=== PATIENT | male | born 1950 | race African-American/Black ===

== ENCOUNTER 2016-07-31 11:19 | Emergency (ER) | payer MEDICARE, OTHER ==
[~2016-07-31] VITALS: Ht 165.1 cm; Wt 64.9 kg
[~2016-07-31 11:19] MED LIST: ACETAMINOPHEN-1 EAC1 ORAL; BACTRIM DS TAB1 EAC1 ORAL; DOXYCYCLINE MO100 MG ORAL; HYDROCODON-ACE1 EA15 ORAL; METOPROLOL TART25 MG ORAL
[2016-07-31] MEDS ORDERED: NKM (11:27)
[2016-07-31 11:38] VITALS: BP 96/64
[2016-07-31 12:25] VITALS: BP 158/82
[2016-07-31 12:29] LABS: BASOPHILS % (AUTO) 2.4 % (0.0-2.0); EOSINOPHILS % (AUTO) 9.1 % (0.0-3.0); LYMPHOCYTES % (AUTO) 34.9 % (20.0-45.0); MEAN CORPUSCULAR HGB CONC 32.3 G/DL (32.0-36.0); MEAN CORPUSCULAR VOLUME 93 FL (80-99); MEAN PLATELET VOLUME 9.4 FL (6.5-10.1); MONOCYTES % (AUTO) 11.8 % (1.0-10.0); NEUTROPHILS % (AUTO) 41.8 % (45.0-75.0); PLATELET COUNT 231 K/UL (150-450); RED BLOOD COUNT 4.58 M/UL (4.70-6.10); RED CELL DISTRIBUTION WIDTH 13.1 % (11.6-14.8); WHITE BLOOD COUNT 4.4 K/UL (4.8-10.8)
[2016-07-31 12:32] LABS: INR 1.1 (0.9-1.1); PROTHROMBIN TIME 11.7 SEC (9.30-11.50)
[2016-07-31 12:37] LABS: ALANINE AMINOTRANSFERASE 68 U/L (3-41); ANION GAP 11 (5-15); ASPARTATE AMINO TRANSFERASE 76 U/L (5-40); CALCIUM 9.6 mg/dL (8.6-10.2); CARBON DIOXIDE 29 mEQ/L (20-30); CHLORIDE 101 mEQ/L (98-107); CREATININE 0.8 mg/dL (0.7-1.2); GLOMERULAR FILTRATION RATE > 60 mL/min (>60); HEMOLYSIS 7; LIPASE 34 U/L (< 60); POTASSIUM 3.5 mEQ/L (3.4-4.9); SODIUM 141 mEQ/L (135-145); TOTAL PROTEIN 7.2 g/dL (6.6-8.7)
[2016-07-31 12:50] LABS: APPEARANCE,URINE CLEAR; KETONES,URINE NEGATIVE (NEGATIVE); LEUKOCYTE ESTERASE ,URINE 1+ (NEGATIVE); NITRITE,URINE NEGATIVE (NEGATIVE); PH,URINE 6 (4.5-8.0); PROTEIN,URINE NEGATIVE (NEGATIVE); UROBILINOGEN,URINE 4 MG/DL (0.0-1.0)
[2016-07-31 13:23] LABS: BACTERIA,URINE FEW /HPF; MUCUS,URINE FEW /LPF (NONE/OCC); SQUAMOUS EPITHELIAL CELL,UR OCCASIONAL /LPF (NONE/OCC); WBC,URINE 0-2 /HPF (0 - 0)
[2016-07-31 14:18] VITALS: BP 140/83
--- NOTE | 2016-07-31 14:31 | Diagnostic Imaging Report ---
Indications: Abdominal pain, blood in stool Technique: Continuous helical CT imaging of the abdomen and pelvis was performed with automatic exposure control following administration of oral and intravenous nonionic iodine contrast, on a Siemens sensation [address] scanner. Axial, coronal, and sagittal images were reconstructed at 5 mm slice thickness. CTDI volume(s): 15 mGy Total DLP: 777 mGy-cm Findings: Comparison: 07/01/2015 Oral contrast has passed throughout the gastrointestinal tract to the level of distal but not terminal ileum. Entire tract nondilated. Appendix not identified. Gas and feces throughout unopacified colon to rectum. Multiple diverticula in the descending and sigmoid colon. Mild stranding/haziness adjacent to distal descending colon. Short segment of descending and sigmoid colon, rectum are poorly distended and, as such, mural thickening not excludable. No obvious mass. No associated extraluminal gas or fluid collections. Again noted are septated cyst versus 2 adjacent cysts emanating exophytically from the right kidney, distended urinary bladder, prominent arterial mural calcifications. Flow-limiting stenoses of the bilateral external iliac and common femoral, proximal right superficial femoral arteries suggested. Remainder visualized abdominopelvic anatomy demonstrates no other obvious acute abnormality. Irregular pleural-based linear densities are again noted in both lung bases, decreased. Disc space narrowing with marginal osteophyte formation, vacuum phenomenon, discogenic sclerosis, facet sclerosis and hypertrophy again noted throughout lumbar, lower thoracic spine. L3 and L4 laminectomy defects again noted. IMPRESSION: Colonic findings suggestive of mild diverticulitis of the distal descending colon. No evidence of associated obstruction, perforation, or abscess. No other evidence of acute abdominopelvic disease Additional colonic diverticulosis Multisegmental underdistention of left-sided colon. Pathologic mural thickening in these regions not excludable. Consider colonoscopy for further evaluation. Right renal cortical cyst/cysts Severe arteriosclerosis. Bilateral iliofemoral significant stenoses suggested. If clinically indicated, consider CT angiography for further evaluation. Urinary bladder distention. Rule out outlet obstruction. Pulmonary bibasal subsegmental atelectasis versus scarring, decreased in prominence from previous exam Degenerative spondylosis with previous lumbar laminectomies
[2016-07-31] MEDS ORDERED: metroNIDAZOLE 500mg 100 ML IVPB ONE (14:45)
--- NOTE | 2016-07-31 14:53 | Emergency Room Report ---
History of Present Illness General Chief Complaint: Gastrointestinal Bleed Source: Patient Present Illness HPI The patient states that last night and today he developed rectal bleeding. He states that the bleeding was spontaneous and watery in the. He denies constipation or diarrhea. He denies abdominal pain. He denies fever or chills. He denies nausea or vomiting. He has never had this previously. He has no other complaints. Allergies: Coded Allergies: No Known Allergies (Unverified , 05/08/13) Patient History Past Medical History: see triage record, HTN, UT, CAD, other - HCV Social History: Reports: alcohol use, Denies: drug use, smoking Reviewed Nursing Documentation: PMH: Agreed, PSxH: Agreed Nursing Documentation-PMH Past Medical History: No History, Except For Hx Cardiac Problems: Yes - Hepatitis C, mi Hx Hypertension: Yes Review of Systems All Other Systems: negative except mentioned in HPI Physical Exam Vital Signs Date Time Temp Pulse Resp B/P Pulse Ox O2 Delivery O2 Flow Rate FiO2 07/31/16 11:22 98.1 71 18 96/64 98 Room Air Sp02 EP Interpretation: reviewed, normal General Appearance: no apparent distress, alert, GCS 15, non-toxic Head: normocephalic, atraumatic Eyes: bilateral eye PERRL, bilateral eye normal inspection ENT: hearing grossly normal, normal pharynx, no angioedema, normal voice Neck: full range of motion, supple/symm/no masses Respiratory: chest non-tender, lungs clear, normal breath sounds, speaking full sentences Cardiovascular #1: regular rate, rhythm, no edema Gastrointestinal: normal bowel sounds, non tender, soft, non-distended, no guarding, no rebound Rectal: deferred Musculoskeletal: back normal, gait/station normal, normal range of motion, non- tender, calf tenderness Neurologic: alert, oriented x3, responsive, motor strength/tone normal, sensory intact, speech normal Psychiatric: judgement/insight normal, memory normal, mood/affect normal, no suicidal/homicidal ideation Skin: normal color, no rash, warm/dry, well hydrated Medical Decision Making Diagnostic Impression: Primary Impression: Diverticulitis large intestine w/o perforation or abscess w/bleeding ER Course This patient was found to have diverticulitis. CT also showed a distended urinary bladder. However, the patient urinated here throughout his ED course about 800 ml. The patient declined difficulty urinating or feeling of fullness in his bladder. I am unsure if the patient does have a full bladder prior to the CT scan. Regardless, I had planned on admitting this patient, however the patient declined. The patient states that he is at 85-year-old mother that he is the primary caregiver for he cannot be admitted to the hospital. I did educate him that he would need to return for any worsening symptoms and that his condition could deteriorate. He indicated understanding. Labs Test 07/31/16 12:05 07/31/16 12:20 White Blood Count 4.4 K/UL (4.8-10.8) Red Blood Count 4.58 M/UL (4.70-6.10) Hemoglobin 13.7 G/DL (14.2-18.0) Hematocrit 42.6 % (42.0-52.0) Mean Corpuscular Volume 93 FL (80-99) Mean Corpuscular Hemoglobin 30.0 PG (27.0-31.0) Mean Corpuscular Hemoglobin Concent 32.3 G/DL (32.0-36.0) Red Cell Distribution Width 13.1 % (11.6-14.8) Platelet Count 231 K/UL (150-450) Mean Platelet Volume 9.4 FL (6.5-10.1) Neutrophils (%) (Auto) 41.8 % (45.0-75.0) Lymphocytes (%) (Auto) 34.9 % (20.0-45.0) Monocytes (%) (Auto) 11.8 % (1.0-10.0) Eosinophils (%) (Auto) 9.1 % (0.0-3.0) Basophils (%) (Auto) 2.4 % (0.0-2.0) Prothrombin Time 11.7 SEC (9.30-11.50) Prothromb Time International Ratio 1.1 (0.9-1.1) Activated Partial Thromboplast Time 30 SEC (23-33) Sodium Level 141 mEQ/L (135-145) Potassium Level 3.5 mEQ/L (3.4-4.9) Chloride Level 101 mEQ/L (98-107) Carbon Dioxide Level 29 mEQ/L (20-30) Anion Gap 11 (5-15) Blood Urea Nitrogen 11 mg/dL (7-23) Creatinine 0.8 mg/dL (0.7-1.2) Estimat Glomerular Filtration Rate > 60 mL/min (>60) Glucose Level 124 mg/dL (74-106) Calcium Level 9.6 mg/dL (8.6-10.2) Total Bilirubin 0.5 mg/dL (0.0-1.2) Aspartate Amino Transf (AST/SGOT) 76 U/L (5-40) Alanine Aminotransferase (ALT/SGPT) 68 U/L (3-41) Alkaline Phosphatase 89 U/L (40-129) Total Protein 7.2 g/dL (6.6-8.7) Albumin 3.6 g/dL (3.5-5.2) Globulin 3.6 g/dL Albumin/Globulin Ratio 1.0 (1.0-2.7) Lipase 34 U/L (< 60) Urine Color Yellow Urine Appearance Clear Urine pH 6 (4.5-8.0) Urine Specific [place] 1.025 (1.005-1.035) Urine Protein Negative (NEGATIVE) Urine Glucose (UA) Negative (NEGATIVE) Urine Ketones Negative (NEGATIVE) Urine Occult Blood 2+ (NEGATIVE) Urine Nitrite Negative (NEGATIVE) Urine Bilirubin Negative (NEGATIVE) Urine Urobilinogen 4 MG/DL (0.0-1.0) Urine Leukocyte Esterase 1+ (NEGATIVE) Urine RBC 2-4 /HPF (0 - 0) Urine WBC 0-2 /HPF (0 - 0) Urine Squamous Epithelial Cells Occasional /LPF Urine Bacteria Few /HPF (NONE) Urine Mucus Few /LPF (NONE/OCC) CT/MRI/US Diagnostic Results CT/MRI/US Diagnostic Results : Imaging Test Ordered: CT abd/pelvis Impression Colonic findings suggestive of mild diverticulitis of the distal descending colon. No evidence of associated obstruction, perforation, or abscess. No other evidence of acute abdominopelvic disease Additional colonic diverticulosis Multisegmental underdistention of left-sided colon. Pathologic mural thickening in these regions not excludable. Consider colonoscopy for further evaluation. Right renal cortical cyst/cysts Severe arteriosclerosis. Bilateral iliofemoral significant stenoses suggested. If clinically indicated, consider CT angiography for further evaluation. Urinary bladder distention. Rule out outlet obstruction. Pulmonary bibasal subsegmental atelectasis versus scarring, decreased in prominence from previous exam Degenerative spondylosis with previous lumbar laminectomies Last Vital Signs Date Time Temp Pulse Resp B/P Pulse Ox O2 Delivery O2 Flow Rate FiO2 07/31/16 14:18 98.1 71 16 140/83 100 Room Air Status: improved Disposition: AGAINST MEDICAL ADVICE Condition: Serious Referrals: [facility],REFERRING (PCP) GAMAL MORE D.O. July 31, 2016 14:53
[2016-07-31] MEDS ORDERED: CIPROFLOXACIN500 M2 ORAL (14:54)
[2016-07-31] MEDS ORDERED: METRONIDAZOLE500 MG ORAL (14:54)
[2016-07-31] MEDS ORDERED: Ciprofloxacin 500mg tab ORAL ONE (15:00)
[2016-07-31] MEDS ORDERED: metroNIDAZOLE 500mg tab ORAL ONE (15:00)
[2016-07-31 15:46] VITALS: BP 136/70
[2016-07-31 15:49] VITALS: BP 136/70
== END 2016-07-31 15:50 | disposition left against medical advice (07) ==
LOC: EMR 11:45
DX: K57.92 Diverticulitis of intestine, part unspecified, without perforation or abscess without bleeding (principal); I10 Essential (primary) hypertension; I25.10 Atherosclerotic heart disease of native coronary artery without angina pectoris; I25.2 Old myocardial infarction; Z86.19 Personal history of other infectious and parasitic diseases; N28.1 Cyst of kidney, acquired; I70.90 Unspecified atherosclerosis; M47.9 Spondylosis, unspecified
CPT/HCPCS: 36415; 74177; 80053; 81003; 83690; 85025; 85610; 85730; 96374; 99284; Q9967

== ENCOUNTER 2018-02-24 13:36 | Emergency (ER) | payer MEDICARE ==
[~2018-02-24] VITALS: Ht 165.1 cm; Wt 64.9 kg
[~2018-02-24 13:36] MED LIST changes: +CIPROFLOXACIN500 M2 ORAL; +METRONIDAZOLE500 MG ORAL; +NKM
--- NOTE | 2018-02-24 13:54 | Emergency Room Report ---
History of Present Illness General Chief Complaint: Upper Respiratory Illness Source: Patient Present Illness HPI Patient is a 67-year-old male presented after increased cough and difficulty breathing. Patient reports having increased cough productive of clear sputum. He reports having prior heart attack. He reports having increased congestion. He denies any medications he is taking. He denies prior history of CHF. Patient states he's been having shortness of breath for several months.He denies taking inhalers or being a smoker. Allergies: Coded Allergies: No Known Allergies (Unverified , 02/24/18) Patient History Past Medical History: see triage record Reviewed Nursing Documentation: PMH: Agreed; PSxH: Agreed Nursing Documentation-PMH Past Medical History: No History, Except For Hx Cardiac Problems: Yes - Hepatitis C, mi Hx Hypertension: Yes Review of Systems All Other Systems: negative except mentioned in HPI Physical Exam Vital Signs Date Time Temp Pulse Resp B/P (MAP) Pulse Ox O2 Delivery O2 Flow Rate FiO2 02/24/18 13:40 97.7 70 22 115/70 95 Room Air Sp02 EP Interpretation: reviewed, normal General Appearance: normal inspection, well appearing, no apparent distress, alert, GCS 15 Head: atraumatic ENT: normal ENT inspection, hearing grossly normal, normal voice Neck: normal inspection, full range of motion, supple, no bony tend Respiratory: normal inspection, no respiratory distress, no retraction, wheezing Cardiovascular #1: regular rate, rhythm, no edema Gastrointestinal: normal inspection, normal bowel sounds, non tender, soft, no guarding, no hernia Genitourinary: no CVA tenderness Musculoskeletal: normal inspection, back normal, normal range of motion Neurologic: normal inspection, alert, oriented x3, responsive, 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 Differential included but was not limited to anemia, pneumonia, pneumothorax, myocardial infarction, pericardial effusion, congestive heart failure, acidosis. Because of complexity of patient's case imaging studies were ordered. Chest x-ray one view interpreted by me showed the normal cardiac size without any evident infiltrate. Patient was given breathing treatment with improvement of symptoms. He is advised to follow-up with primary care physician for reevaluation and further management of the chronic lung disease. Patient does not appear to be in any respiratory distress and does not appear to have any significant EKG changes require hospitalization. Last Vital Signs Date Time Temp Pulse Resp B/P (MAP) Pulse Ox O2 Delivery O2 Flow Rate FiO2 02/24/18 13:40 97.7 70 22 115/70 95 Room Air Status: improved Disposition: HOME, SELF-CARE Condition: Stable Scripts Prednisone* (PREDNISONE*) 20 Mg Tablet 40 MG ORAL DAILY, #10 TAB Prov: Marcelino Seay MD 02/24/18 Albuterol Sulfate* (ALBUTEROL SULFATE MDI*) 8.5 Gm Hfa.aer.ad 2 PUFF INH Q6H, #1 INH 0 Refills Prov: Marcelino Seay MD 02/24/18 Marcelino Seay MD Feb 24, 2018 13:54
[2018-02-24 13:59] VITALS: BP 139/65
[2018-02-24] MEDS ORDERED: Albuterol/Ipratropium 3ml neb HHN ONE (14:00)
[2018-02-24] MEDS ORDERED: ALBUTEROL SULF8.5 GM INH (14:20)
[2018-02-24] MEDS ORDERED: PREDNISONE20 MG ORAL (14:20)
[2018-02-24 14:32] VITALS: BP 132/69
--- NOTE | 2018-02-25 09:18 | Diagnostic Imaging Report ---
Indication: Shortness of breath Technique: One view of the chest Comparison: none Findings: The heart is upper limits normal in size. Some atelectatic changes are seen at both lung bases. The lungs and pleural spaces otherwise clear. Impression: No acute process
== END 2018-02-24 15:17 | disposition home or self-care (01) ==
LOC: EMR 13:58
DX: J40 Bronchitis, not specified as acute or chronic (principal); I25.2 Old myocardial infarction; B19.20 Unspecified viral hepatitis C without hepatic coma
CPT/HCPCS: 71045; 93005; 94640; 99284; J7620

== ENCOUNTER 2018-05-08 08:33 | Emergency (ER) | payer MEDICARE ==
[~2018-05-08] VITALS: Ht 165.1 cm; Wt 65.8 kg
[~2018-05-08 08:33] MED LIST changes: +ALBUTEROL SULF8.5 GM INH; +PREDNISONE20 MG ORAL
[2018-05-08 08:35] VITALS: BP 127/73
--- NOTE | 2018-05-08 08:43 | NUR ---
eED Nurse Note: Pt came in due to generalized rashes x 2 weeks. Pt states it very itchy and there's some oozing on the back of his knees. Denies SOB. VSS.
--- NOTE | 2018-05-08 09:11 | Emergency Room Report ---
History of Present Illness General Chief Complaint: Skin Rash/Abscess Source: Patient Present Illness HPI Patient is a 67-year-old male presented after increased generalized skin rash. Patient reports having increased itchy rash primarily to his extremities. Patient reports having prior history of bronchitis. He denies any fever. Patient was noted to have some areas which had increased discomfort to the back of his legs. He denies any fever. He is not currently taking any antibiotics. Patient had previously been diagnosed with psoriasis. Allergies: Coded Allergies: No Known Allergies (Unverified , 02/24/18) Patient History Past Medical History: see triage record Reviewed Nursing Documentation: PMH: Agreed; PSxH: Agreed Nursing Documentation-PMH Past Medical History: No History, Except For Hx Hypertension: Yes Review of Systems All Other Systems: negative except mentioned in HPI Physical Exam Vital Signs Date Time Temp Pulse Resp B/P (MAP) Pulse Ox O2 Delivery O2 Flow Rate FiO2 05/08/18 08:35 97.7 70 14 127/73 95 Room Air General Appearance: well appearing, no apparent distress, alert, GCS 15 Head: normocephalic, atraumatic ENT: hearing grossly normal, normal voice Neck: full range of motion, supple Respiratory: no respiratory distress, speaking full sentences Gastrointestinal: normal inspection Musculoskeletal: no calf tenderness Neurologic: normal inspection, alert, oriented x3, responsive, 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 Patient presented for skin rash. Differential diagnosis include was not limited to eczema, psoriasis, secondary syphilis, erythema multiforme, pityriasis rosea among others. Patient has a benign exam and does not appear to require any further imaging or laboratory testing at this time patient was noted to have large area of affected skin. There is no evident blistering. Patient was given prescription for oral steroids. He was advised to recheck with his primary care physician. Patient was advised to avoid foods that he may be allergic to.Patient was advised to follow-up with primary care physician. He was given medications for symptomatic treatment. Last Vital Signs Date Time Temp Pulse Resp B/P (MAP) Pulse Ox O2 Delivery O2 Flow Rate FiO2 05/08/18 08:35 97.7 14 127/73 95 Room Air 05/08/18 08:35 70 Status: improved Disposition: HOME, SELF-CARE Condition: Stable Scripts Triamcinolone Acet (Triamcinolone Acetonide) 15 Gm Cream..g. 15 GM APPLIC DAILY, #15 GM Prov: Marcelino Seay MD 05/08/18 Hydroxyzine HCl (Hydroxyzine HCl) 10 Mg Tablet 10 MG ORAL EVERY 6 HOURS, #20 TAB 0 Refills Prov: Marcelino Seay MD 05/08/18 Prednisone* (PREDNISONE*) 20 Mg Tablet 40 MG ORAL DAILY, #10 TAB Prov: Marcelino Seay MD 05/08/18 Marcelino Seay MD May 08, 2018 09:11
[2018-05-08] MEDS ORDERED: PREDNISONE20 MG ORAL (09:12)
[2018-05-08] MEDS ORDERED: VISTARIL10 MG ORAL (09:12)
[2018-05-08] MEDS ORDERED: KENALOG 0.025%15 GM APPLIC (09:12)
[2018-05-08 09:17] VITALS: BP 127/80
--- NOTE | 2018-05-08 09:17 | NUR ---
ED Nurse Note: Pt cleared by Health Care Provider for discharge. DC instructions/prescriptions given and explained to pt and verbalized understanding of teachings. All medical devices such as ID band removed. Pt AAO x4, ambulatory and left with all personal belongings.
== END 2018-05-08 09:17 | disposition home or self-care (01) ==
LOC: EMR 09:00
DX: L30.9 Dermatitis, unspecified (principal); I10 Essential (primary) hypertension
CPT/HCPCS: 99282

== ENCOUNTER 2018-05-28 17:19 | Emergency (ER) | payer MEDICARE ==
[~2018-05-28] VITALS: Ht 160 cm; Wt 61.2 kg
[~2018-05-28 17:19] MED LIST changes: +KENALOG 0.025%15 GM APPLIC; +VISTARIL10 MG ORAL
[2018-05-28 17:28] VITALS: BP 128/76
--- NOTE | 2018-05-28 17:28 | NUR ---
ED Nurse Note: PT WALKED IN TO ER TODAY FROM HOME. AOX4. PT C/O ITCHY GENERALIZED RASH ALL OVER BODY X 2 WEEKS AGO. PT STATES HE WAS SEEN 2 WEEKS AGO WHEN RASH INITIALLY STARTED AND WAS D/C'D WITH RX BUT LOST THE RX. MEDS NEVER FILLED.
[2018-05-28] MEDS ORDERED: VISTARIL10 MG ORAL (17:45)
[2018-05-28] MEDS ORDERED: PREDNISONE20 MG ORAL (17:45)
[2018-05-28] MEDS ORDERED: HydrOXYzine tab 25mg tab ORAL ONE (17:45)
[2018-05-28] MEDS ORDERED: KENALOG 0.025%15 GM APPLIC (17:45)
--- NOTE | 2018-05-28 17:46 | Emergency Room Report ---
History of Present Illness General Chief Complaint: Skin Rash/Abscess Source: Patient Present Illness HPI 67-year-old patient ER complaining of generalized rash over entire body that has been present for several weeks. Phani previously seen here 2 weeks ago and was discharged home with medications, states that he lost the prescriptions on the way home. Reports has not taken any other medications since that time. Reports is been using topical lotions without relief of symptoms. Reports pruritus. Denies pain. Denies fever, chest pain, shortness of breath. Denies history of allergies. Denies new lotions or creams. Denies past medical history. Denies other aggravating or relieving factors. Patient is requesting refill of medications. Denies history of diabetes. Denies history of heart disease. Allergies: Coded Allergies: No Known Allergies (Unverified , 02/24/18) Patient History Past Medical History: see triage record Reviewed Nursing Documentation: PMH: Agreed; PSxH: Agreed Nursing Documentation-PMH Past Medical History: No History, Except For Hx Hypertension: Yes Review of Systems All Other Systems: negative except mentioned in HPI Physical Exam Vital Signs Date Time Temp Pulse Resp B/P (MAP) Pulse Ox O2 Delivery O2 Flow Rate FiO2 05/28/18 17:22 97.3 67 18 131/78 98 Room Air Sp02 EP Interpretation: reviewed, normal General Appearance: well appearing, no apparent distress, alert, GCS 15, non- toxic Head: normocephalic, atraumatic Eyes: bilateral eye normal inspection, bilateral eye PERRL ENT: hearing grossly normal, normal pharynx, no angioedema, normal voice, uvula midline, moist mucus membranes Neck: full range of motion Respiratory: lungs clear, normal breath sounds, no rhonchi, no respiratory distress, no accessory muscle use, no wheezing, speaking full sentences Cardiovascular #1: regular rate, rhythm, no edema Musculoskeletal: back normal, digits/nails normal, gait/station normal, normal range of motion, non-tender Neurologic: alert, oriented x3, responsive, motor strength/tone normal, sensory intact Skin: rash - Generalized rash of her body and arms, worse on flexor surfaces, with excoriations, no surrounding erythema or edema, no drainage Medical Decision Making PA Attestation Dr. Seay is my supervising Physician whom patient management has been discussed with. Diagnostic Impression: Primary Impression: Rash and other nonspecific skin eruption ER Course Pt. presents to the ED c/o rash. Ddx considered but are not limited to atopic dermatitis, scabies, shingles, allergic reaction, impetigo, psoriasis, lichen simplex chronicus. Vital signs: are WNL, pt. is afebrile Ordered medication. ER COURSE Provided patient with hydroxyzine in the ER for itching. Provided with contact information for free low-cost healthcare clinics, advised to follow-up and get referral to dermatology. Does not require oral antibiotics, no erythema or edema, excoriations noted, will provide topical antibiotics and steroid to help with itching symptoms and prevent infection. Followup with dermatology. ER precautions given. DISCHARGE: At this time pt. is stable for d/c to home. Patient resting comfortably, in no acute distress, nontoxic appearing. Will provide printed patient care instructions, and any necessary prescriptions. Care plan and follow up instructions have been discussed with the patient prior to discharge. Patient provided with list of healthcare clinics to establish primary care physician. Patient instructed to follow-up with primary care provider in 3 - 5 days. Patient questions asked and answered. ER precautions given. Patient instructed to return to ER immediately for any new or worsening of symptoms including but not limited to increasing SOB, persistent fever. - Please note that this Emergency Department Report was dictated using [employer] sql database developer technology software, occasionally this can lead to erroneous entry secondary to interpretation by the dictation equipment. Last Vital Signs Date Time Temp Pulse Resp B/P (MAP) Pulse Ox O2 Delivery O2 Flow Rate FiO2 05/28/18 17:28 97.6 70 16 128/76 99 Room Air Disposition: HOME, SELF-CARE Condition: Stable Scripts Bacitracin/Polymyxin B Sulfate (BACITRACIN-POLYMYXIN OINTMENT) 28.35 Gm Oint...g. 1 APPLIC TP BID, #28 GM Prov: Aric Orozco 05/28/18 Triamcinolone Acet (Triamcinolone Acetonide) 15 Gm Cream..g. 15 GM APPLIC DAILY, #15 GM Prov: Aric Orozco 05/28/18 Hydroxyzine HCl (Hydroxyzine HCl) 10 Mg Tablet 10 MG ORAL EVERY 6 HOURS, #20 TAB 0 Refills Prov: Aric Orozco 05/28/18 Prednisone* (PREDNISONE*) 20 Mg Tablet 40 MG ORAL DAILY, #10 TAB Prov: Aric Orozco 05/28/18 Patient Instructions: Psoriasis, [id number], Rash Additional Instructions: Followup with primary care provider in 3 -5 days. Request referral to dermatology as needed. Do not scratch or itch. Apply cool compresses to affected area. Wash all clothes and bedding. Take medications as directed. Do not apply topical steroid medication to face or skin creases. SE Benadryl drowsiness, do not take prior to drinking, driving, operating heavy machinery. Take Claritin during the day and Benadryl at night for itching symptoms. Patient questions asked and answered. ER precautions given, patient instructed to return to ER immediately for any new or worsening of symptoms. [facility] Dr. Anmol Ocasio Aric Orozco May 28, 2018 17:46
[2018-05-28 17:49] VITALS: BP 124/80
--- NOTE | 2018-05-28 17:50 | NUR ---
ED Nurse Note: PT LAYING PEACEFULLY IN BED IN NAD. AOX4. PRESCRIPTIONS AND DISCHARGE PAPERWORK EXPLAINED TO PT. PT VERBALIZES UNDERSTANDING AND ALL QUESTIONS ANSWERED. PRESCRIPTIONS AND DISCHARGE PAPERWORK GIVEN TO PT AND ID WRISTBAND REMOVED. PT WALKED OUT OF ER WITH STEADY GAIT AND ALL BELONGINGS.
[2018-05-28] MEDS ORDERED: BACITRACIN-P28.35 GM TP (17:51)
== END 2018-05-28 17:50 | disposition home or self-care (01) ==
LOC: EMR 17:40
DX: R21 Rash and other nonspecific skin eruption (principal); I10 Essential (primary) hypertension
CPT/HCPCS: 99282

== ENCOUNTER 2019-03-17 00:40 | Emergency (ER) | payer BC, MEDICARE ==
[~2019-03-17] VITALS: Ht 180.3 cm; Wt 68.0 kg
[~2019-03-17 00:40] MED LIST changes: +BACITRACIN-P28.35 GM TP
--- NOTE | 2019-03-17 00:45 | NUR ---
ED Nurse Note: Pt brought in by ambulance from [facility], pt reports "feel like I'm going to " is unaqble to specify what is wrong, denies pain. Pt is A&Ox3, VSS. Pt admits to using crack
--- NOTE | 2019-03-17 00:49 | Emergency Room Report ---
History of Present Illness General Chief Complaint: Generalized Weakness Source: Patient, EMS Present Illness HPI This is a 68-year-old male with a history of alcohol drug abuse. He presents with chief complaint of generalized weakness. He is also homeless. He said he is in the rain and it is cold. He has felt weak and soaking wet. He went into a [employer] and asked him to call 911. Denies any fever chills but denies any nausea vomiting. Has generalized weakness. Denies any other complaint. Last crack use was few days ago. Nothing made it better. Nothing made it worse. Allergies: Coded Allergies: No Known Allergies (Unverified , 03/17/19) Patient History Past Medical History: see triage record, old chart reviewed Past Surgical History: other Pertinent Family History: none Social History: Reports: smoking, alcohol use, drug use Immunizations: other Reviewed Nursing Documentation: PMH: Agreed; PSxH: Agreed Review of Systems Constitutional: Reports: weakness Eye: Denies: eye pain, blurred vision ENT: Denies: ear pain, nose congestion, throat swelling Respiratory: Denies: cough, shortness of breath Cardiovascular: Denies: chest pain, palpitations Gastrointestinal: Denies: abdominal pain, diarrhea, nausea, vomiting Musculoskeletal: Denies: back pain, joint pain Skin: Denies: rash Neurological: Denies: headache, numbness Endocrine: Denies: increased thirst, increased urine Hematologic/Lymphatic: Denies: easy bruising All Other Systems: negative except mentioned in HPI Physical Exam [id number] EP Interpretation: reviewed, normal General Appearance: well appearing, no apparent distress, alert Head: normocephalic, atraumatic Eyes: bilateral eye PERRL, bilateral eye EOMI ENT: hearing grossly normal, normal pharynx Neck: full range of motion, supple, no meningismus Respiratory: chest non-tender, lungs clear, normal breath sounds Cardiovascular #1: regular rate, rhythm, no murmur Gastrointestinal: normal bowel sounds, non tender, no mass, no organomegaly, no bruit, non-distended Musculoskeletal: back normal, normal range of motion, other - Uses a walker Psychiatric: mood/affect normal Medical Decision Making Diagnostic Impression: Primary Impression: Episode of generalized weakness Additional Impressions: Anemia Qualified Codes: D64.9 - Anemia, unspecified Cocaine abuse Alcohol abuse ER Course Patient with generalized weakness. I suspect he is more to place to sleep. Labs unremarkable. He admits to alcohol and drug abuse. No evidence of ACS, PE , dissection. Will discharge home in the morning. Status: improved Disposition: HOME, SELF-CARE Condition: Stable Scripts No Active Prescriptions or Reported Meds Patient Instructions: Weakness Additional Instructions: Abstain from drugs and alcohol. Go to rehab. Follow-up with your doctor in 7 days. Return if worse. Ignacio Degroot MD Mar 17, 2019 00:49
[2019-03-17 00:59] VITALS: BP 125/77
[2019-03-17 01:24] LABS: BASOPHILS % (AUTO) 1.6 % (0.0-2.0); EOSINOPHILS % (AUTO) 8.1 % (0.0-3.0); HEMATOCRIT 30.3 % (42.0-52.0); HEMOGLOBIN 9.2 G/DL (14.2-18.0); LYMPHOCYTES % (AUTO) 26.4 % (20.0-45.0); MEAN CORPUSCULAR VOLUME 73 FL (80-99); MONOCYTES % (AUTO) 16.8 % (1.0-10.0); NEUTROPHILS % (AUTO) 47.1 % (45.0-75.0); PLATELET COUNT 326 K/UL (150-450); RED BLOOD COUNT 4.16 M/UL (4.70-6.10); RED CELL DISTRIBUTION WIDTH 15.9 % (11.6-14.8); WHITE BLOOD COUNT 6.9 K/UL (4.8-10.8)
[2019-03-17 01:35] LABS: ANION GAP 7 mmol/L (5-15); BLOOD UREA NITROGEN 12 mg/dL (7-18); CALCIUM 8.5 MG/DL (8.5-10.1); CARBON DIOXIDE 26 MMOL/L (21-32); CHLORIDE 105 MMOL/L (98-107); CREATININE 0.9 MG/DL (0.55-1.30); POTASSIUM 3.7 MMOL/L (3.5-5.1); SODIUM 138 MMOL/L (136-145)
[2019-03-17 01:39] LABS: ALANINE AMINOTRANSFERASE 60 U/L (12-78); ALBUMIN 3.2 G/DL (3.4-5.0); ALBUMIN/GLOBULIN RATIO 0.6 (1.0-2.7); ALKALINE PHOSPHATASE 83 U/L (46-116); ASPARTATE AMINO TRANSFERASE 50 U/L (15-37); BILIRUBIN,TOTAL 0.2 MG/DL (0.2-1.0)
--- NOTE | 2019-03-17 02:45 | NUR ---
ED Nurse Note: Pt resting in bed with eyes closed, non-labored breathing, no signs of distress. Pt was given a sandwhich and juice earlier as well as an urinal. Will continue to monitor
--- NOTE | 2019-03-17 04:45 | NUR ---
ED Nurse Note: Pt resting in bed with eyes closed, side laying, no signs of distress, will continue to monitor
[2019-03-17 06:40] VITALS: BP 138/78
== END 2019-03-17 06:40 | disposition home or self-care (01) ==
LOC: EDBD 00:40 → EDUNIT# 01:05 → EMR 01:05
DX: R53.1 Weakness (principal); D64.9 Anemia, unspecified; F14.10 Cocaine abuse, uncomplicated; F10.10 Alcohol abuse, uncomplicated; Z59.0 Homelessness; F17.200 Nicotine dependence, unspecified, uncomplicated
CPT/HCPCS: 36415; 80053; 84484; 85025; 96360; 99284